=== PATIENT | female | born 1995 | race Caucasian/White ===

== ENCOUNTER 2017-09-22 17:26 | Emergency (ER) | payer BC ==
[2017-09-22] MEDS: SOD CHLORIDE 0.9% 1,000 ML IV (21:13)
[2017-09-22 21:25] LABS: ADD MAN DIFF? NO
[2017-09-22 21:27] LABS: BASOPHILS % 0.3 % (0.0-2.0); EOSINOPHILS % 0.5 % (0.0-7.0); HEMATOCRIT 38.7 % (37.0-47.0); HEMOGLOBIN 13.3 g/dl (12.0-16.0); LYMPHOCYTES % 22.7 % (18.0-55.0); MEAN CORPUSCULAR HEMOGLOBIN 30.9 pg (29.0-33.0); MEAN CORPUSCULAR HGB CONC 34.4 g/dl (32.0-37.0); MEAN PLATELET VOLUME 10.2 fl (7.4-10.4); MONOCYTE # 0.5 10^3/ul (0.3-0.9); NEUTROPHIL # 6.1 10^3/ul (1.6-7.5); NEUTROPHILS % 69.8 % (30.0-74.0); PLATELET COUNT 303 10^3/UL (140-415); RED CELL DISTRIBUTION WIDTH 13.1 % (11.5-14.5)
[2017-09-22 21:27] LABS: WHITE BLOOD COUNT 8.7 10^3/ul (4.8-10.8)
[2017-09-22 21:54] LABS: ALANINE AMINOTRANSFERASE 29 IU/L (13-69); ALBUMIN 3.9 g/dl (3.3-4.9); ALBUMIN/GLOBULIN RATIO 1.08; ALKALINE PHOSPHATASE 57 IU/L (42-121); ANION GAP 13 (8-16); ASPARTATE AMINO TRANSFERASE 23 IU/L (15-46); BLOOD UREA NITROGEN 13 mg/dl (7-20); CALCIUM 9.3 mg/dl (8.4-10.2); CARBON DIOXIDE 22 mmol/L (21-31); CHLORIDE 106 mmol/L (97-110); CREATININE 0.57 mg/dl (0.44-1.00); GLUCOSE 82 mg/dl (70-220); POTASSIUM 3.7 mmol/L (3.5-5.1); SODIUM 137 mmol/L (135-144); TOTAL PROTEIN 7.5 g/dl (6.1-8.1)
[2017-09-22 21:55] LABS: INR 0.93; PROTIME 12.6 Sec (11.9-14.9)
[2017-09-22 21:57] LABS: PARTIAL THROMBOPLASTIN TIME 27.4 Sec (25.0-35.0)
[2017-09-22 21:59] LABS: ADD UMIC YES; UR ASCORBIC ACID NEGATIVE (NEGATIVE); UR BACTERIA FEW /HPF (NONE SEEN); UR BILIRUBIN (Dip) NEGATIVE (NEGATIVE); UR BLOOD (Dip) NEGATIVE (NEGATIVE); UR CLARITY CLEAR (CLEAR); UR COLOR YELLOW (YELLOW); UR GLUCOSE (Dip) NEGATIVE (NEGATIVE); UR KETONES (Dip) NEGATIVE (NEGATIVE); UR LEUKOCYTE ESTERASE (Dip) TRACE Leu/ul (NEGATIVE); UR NITRITE (Dip) NEGATIVE (NEGATIVE); UR RBC 0 /HPF (0-5); UR SPECIFIC GRAVITY (Dip) 1.026 (1.003-1.030); UR SQUAMOUS EPITHELIAL CELL FEW /HPF (FEW); UR TOTAL PROTEIN (Dip) NEGATIVE (NEGATIVE); UR UROBILINOGEN (Dip) NEGATIVE (NEGATIVE); UR WBC 1 /HPF (0-5)
== END 2017-09-22 22:46 | disposition home or self-care (01) ==
LOC: FTE 17:26 → L-D 21:57 → FTE 21:57 → OBT 21:55 → L-D 21:57 → OBT 21:57 → FTE 17:26 → L-D 21:57 → FTE 21:57 → L-D 21:58 → FTE 21:58
DX: O26.892 Other specified pregnancy related conditions, second trimester (principal); R10.30 Lower abdominal pain, unspecified; R10.2 Pelvic and perineal pain; Z3A.18 18 weeks gestation of pregnancy
CPT/HCPCS: 36415; 76805; 80053; 81001; 84702; 85025; 85610; 85730; 86900; 86901; 87086; 99285-25

== ENCOUNTER 2017-09-22 22:17 | Outpatient (CLI) | payer BC ==
[2017-09-23] MEDS: TERBUTALINE 1 MG/ML INJ SC (00:32)
== END 2017-09-23 01:06 | disposition home or self-care (01) ==
LOC: OBT 22:17 → L-D 22:18
DX: O62.9 Abnormality of forces of labor, unspecified (principal); Z3A.18 18 weeks gestation of pregnancy
CPT/HCPCS: Z7500

== ENCOUNTER 2017-09-23 01:46 | Outpatient (CLI) | payer BC | END 2017-10-17 13:20 | disposition home or self-care (01) | LOC: OBT 01:46 → L-D 10-17 11:08 → OBT 10-17 13:20 | DX: O26.892 Other specified pregnancy related conditions, second trimester (principal); Z3A.22 22 weeks gestation of pregnancy; R55 Syncope and collapse | CPT/HCPCS: 76815; 76817 ==

== ENCOUNTER 2017-10-17 13:28 | Emergency (ER) | payer SELFPAY, BC | END 2017-10-17 15:22 | disposition left against medical advice (07) | LOC: E/R 13:28 | DX: Z53.21 Procedure and treatment not carried out due to patient leaving prior to being seen by health care provider (principal) ==

== ENCOUNTER 2017-11-21 23:43 | Inpatient (IN) | payer BC ==
[2017-11-22] MEDS: LACTATED RINGER'S 1,000 ML IV ×3 (00:54→20:02)
[2017-11-22 01:33] LABS: ADD MAN DIFF? NO
[2017-11-22 01:36] LABS: WHITE BLOOD COUNT 9.1 10^3/ul (4.8-10.8)
[2017-11-22 01:36] LABS: BASOPHILS % 0.2 % (0.0-2.0); EOSINOPHILS # 0.1 10^3/ul (0.0-0.5); EOSINOPHILS % 0.7 % (0.0-7.0); HEMATOCRIT 36.9 % (37.0-47.0); HEMOGLOBIN 12.6 g/dl (12.0-16.0); LYMPHOCYTES % 21.8 % (18.0-55.0); MEAN CORPUSCULAR HGB CONC 34.1 g/dl (32.0-37.0); MEAN CORPUSCULAR VOLUME 90.9 fl (72.0-104.0); MEAN PLATELET VOLUME 10.2 fl (7.4-10.4); MONOCYTE # 0.5 10^3/ul (0.3-0.9); MONOCYTES % 5.2 % (0.0-13.0); NEUTROPHIL # 6.3 10^3/ul (1.6-7.5); NEUTROPHILS % 69.7 % (30.0-74.0); PLATELET COUNT 286 10^3/UL (140-415); RED BLOOD COUNT 4.06 10^6/ul (4.20-5.40)
[2017-11-22 02:01] LABS: ALANINE AMINOTRANSFERASE 31 IU/L (13-69); ALBUMIN 3.5 g/dl (3.3-4.9); ALKALINE PHOSPHATASE 104 IU/L (42-121); ANION GAP 16 (8-16); ASPARTATE AMINO TRANSFERASE 22 IU/L (15-46); BLOOD UREA NITROGEN 9 mg/dl (7-20); CALCIUM 9.2 mg/dl (8.4-10.2); CARBON DIOXIDE 21 mmol/L (21-31); CHLORIDE 105 mmol/L (97-110); CREATININE 0.44 mg/dl (0.44-1.00); GLUCOSE 96 mg/dl (70-220); POTASSIUM 3.6 mmol/L (3.5-5.1); SODIUM 138 mmol/L (135-144)
[2017-11-22] MEDS: MAGNESIUM SULFATE 4 GM/100 ML 100 ML IV (02:08)
[2017-11-22] MEDS: BETAMET NA PHOS/AC(6 MG/ML) 5ML INJ IM (02:27)
[2017-11-22] MEDS: MAGNESIUM SULFATE 20 GM/500 ML 500 ML IV ×3 (02:36→23:34)
[2017-11-22 03:06] LABS: ADD UMIC YES; UR ASCORBIC ACID NEGATIVE (NEGATIVE); UR BACTERIA FEW /HPF (NONE SEEN); UR BILIRUBIN (Dip) NEGATIVE (NEGATIVE); UR BLOOD (Dip) NEGATIVE (NEGATIVE); UR CLARITY CLEAR (CLEAR); UR COLOR YELLOW (YELLOW); UR GLUCOSE (Dip) NEGATIVE (NEGATIVE); UR KETONES (Dip) TRACE mg/dL (NEGATIVE); UR LEUKOCYTE ESTERASE (Dip) TRACE Leu/ul (NEGATIVE); UR NITRITE (Dip) NEGATIVE (NEGATIVE); UR RBC 1 /HPF (0-5); UR SPECIFIC GRAVITY (Dip) 1.012 (1.003-1.030); UR TOTAL PROTEIN (Dip) NEGATIVE (NEGATIVE); UR UROBILINOGEN (Dip) NEGATIVE (NEGATIVE); UR WBC 1 /HPF (0-5)
[2017-11-22 07:09] LABS: MAGNESIUM 3.8 mg/dl (1.7-2.5)
[2017-11-22] MEDS: DOCUSATE SODIUM 100 MG CAP PO (09:00)
[2017-11-22] MEDS: AMPICILLIN 2 GM/NS (PMX) 100 ML IVPB ×3 (11:25→23:32)
[2017-11-22] MEDS: PRENATAL VITAMIN PO (11:26)
[2017-11-22] MEDS: ACETAMINOPHEN 325 MG TAB PO ×2 (11:44→20:02)
[2017-11-22 12:43] LABS: MAGNESIUM 4.6 mg/dl (1.7-2.5)
[2017-11-22 18:33] LABS: MAGNESIUM 4.5 mg/dl (1.7-2.5)
[2017-11-22] MEDS: LACTATED RINGER'S 500 ML IV ×6 (20:07→20:08)
[2017-11-22 20:37] LABS: RAPID PLASMA REAGIN NONREACTIVE (NR)
[2017-11-23] MEDS: LACTATED RINGER'S 500 ML IV ×2 (00:07→06:46)
[2017-11-23 01:43] LABS: MAGNESIUM 4.7 mg/dl (1.7-2.5)
[2017-11-23] MEDS: BETAMET NA PHOS/AC(6 MG/ML) 5ML INJ IM (01:58)
[2017-11-23] MEDS: LACTATED RINGER'S 1,000 ML IV (03:45)
[2017-11-23] MEDS: AMPICILLIN 2 GM/NS (PMX) 100 ML IVPB ×2 (06:22→11:29)
[2017-11-23 09:22] LABS: MAGNESIUM 4.8 mg/dl (1.7-2.5)
[2017-11-23] MEDS: PRENATAL VITAMIN PO (11:29)
== END 2017-11-23 16:58 | disposition home or self-care (01) | DRG 780 ==
LOC: OBT 23:43 → L-D 11-22 03:09 → OBT 11-22 03:12 → L-D 11-22 03:17
PROVIDERS: Obstetrics & Gynecology
DX: O47.03 False labor before 37 completed weeks of gestation, third trimester (principal); Z3A.28 28 weeks gestation of pregnancy
CPT/HCPCS: 76815; 76817; 76818; 80053; 81001; 82731; 83735; 85025; 86592; 86850; 86900; 86901; 87086; 96360; 96361

== ENCOUNTER 2018-01-29 11:48 | Outpatient (CLI) | payer BC ==
[2018-01-29 13:33] LABS: ALANINE AMINOTRANSFERASE 22 IU/L (13-69); ALBUMIN 3.4 g/dl (3.3-4.9); ALBUMIN/GLOBULIN RATIO 1.06; ALKALINE PHOSPHATASE 221 IU/L (42-121); ANION GAP 14 (8-16); ASPARTATE AMINO TRANSFERASE 23 IU/L (15-46); BILIRUBIN,INDIRECT 0.2 mg/dl (0-1.1); BILIRUBIN,TOTAL 0.2 mg/dl (0.2-1.3); BLOOD UREA NITROGEN 10 mg/dl (7-20); CALCIUM 8.7 mg/dl (8.4-10.2); CARBON DIOXIDE 19 mmol/L (21-31); CHLORIDE 109 mmol/L (97-110); GLUCOSE 105 mg/dl (70-220); SODIUM 138 mmol/L (135-144); TOTAL PROTEIN 6.6 g/dl (6.1-8.1); URIC ACID 5.2 mg/dl (3.1-7.9)
[2018-01-29 13:45] LABS: INR 0.93; PROTIME 12.5 Sec (11.9-14.9)
[2018-01-29 13:46] LABS: PARTIAL THROMBOPLASTIN TIME 27.1 Sec (25.0-35.0)
[2018-01-29 13:48] LABS: COLLECTION PERIOD 24 hrs; CREATININE CLEARANCE 210.8 mls/min (84.0-162.0); CREATININE,URINE RANDOM 72.26 mg/dl (20-320); VOLUME 2100 ml/24hrs
[2018-01-29 14:20] LABS: COLLECTION PERIOD 24 hrs; VOLUME 2100 mls
[2018-01-29 14:59] LABS: ADD MAN DIFF? NO
[2018-01-29 15:00] LABS: BASOPHILS % 0.2 % (0.0-2.0); EOSINOPHILS % 0.5 % (0.0-7.0); HEMATOCRIT 37.9 % (37.0-47.0); HEMOGLOBIN 12.7 g/dl (12.0-16.0); LYMPHOCYTES # 1.1 10^3/ul (0.8-2.9); MEAN CORPUSCULAR HEMOGLOBIN 30.2 pg (29.0-33.0); MEAN CORPUSCULAR HGB CONC 33.5 g/dl (32.0-37.0); MEAN CORPUSCULAR VOLUME 90.2 fl (82.0-101.0); MEAN PLATELET VOLUME 11.8 fl (7.4-10.4); MONOCYTE # 0.5 10^3/ul (0.3-0.9); MONOCYTES % 7.6 % (0.0-11.0); NEUTROPHIL # 4.3 10^3/ul (1.6-7.5); NEUTROPHILS % 71.7 % (39.0-77.0); PLATELET COUNT 217 10^3/UL (140-415); RED CELL DISTRIBUTION WIDTH 13.4 % (11.5-14.5)
[2018-01-29 15:00] LABS: WHITE BLOOD COUNT 5.9 10^3/ul (4.8-10.8)
== END 2018-01-29 16:15 | disposition home or self-care (01) ==
LOC: OBT 11:48 → L-D 11:49 → OBT 16:15
DX: O24.410 Gestational diabetes mellitus in pregnancy, diet controlled (principal); Z3A.38 38 weeks gestation of pregnancy
CPT/HCPCS: 36415; 76818; 80053; 82575; 84156; 84560; 85025; 85610; 85730

== ENCOUNTER 2018-02-05 10:43 | Inpatient (IN) | payer BC ==
[2018-02-05] MEDS ORDERED: IBUPROFEN 600 MG TAB PO (12:00)
[2018-02-05] MEDS ORDERED: MISOPROSTOL 200 MCG TAB PR (12:00)
[2018-02-05] MEDS ORDERED: BUTORPHANOL 2 MG INJ IV (12:00)
[2018-02-05] MEDS ORDERED: METHYLERGONOVINE 0.2 MG INJ IM (12:00)
[2018-02-05] MEDS ORDERED: CARBOPROST 250 MCG INJ IM (12:00)
[2018-02-05] MEDS ORDERED: LIDOCAINE 1% (MPF) 30 ML INJ INJ (12:00)
[2018-02-05] MEDS ORDERED: OXYTOCIN 30 UNITS/LR 500 ML IV ×3 (12:00)
[2018-02-05 12:43] LABS: ADD MAN DIFF? NO
[2018-02-05 12:47] LABS: BASOPHILS % 0.3 % (0.0-2.0); EOSINOPHILS % 0.5 % (0.0-7.0); HEMATOCRIT 37.4 % (37.0-47.0); HEMOGLOBIN 12.4 g/dl (12.0-16.0); LYMPHOCYTES # 1.4 10^3/ul (0.8-2.9); LYMPHOCYTES % 17.8 % (15.0-51.0); MEAN CORPUSCULAR HGB CONC 33.2 g/dl (32.0-37.0); MEAN CORPUSCULAR VOLUME 90.3 fl (82.0-101.0); MEAN PLATELET VOLUME 11.6 fl (7.4-10.4); MONOCYTE # 0.5 10^3/ul (0.3-0.9); MONOCYTES % 6.8 % (0.0-11.0); NEUTROPHIL # 5.7 10^3/ul (1.6-7.5); NEUTROPHILS % 72.7 % (39.0-77.0); PLATELET COUNT 201 10^3/UL (140-415); RED BLOOD COUNT 4.14 10^6/ul (4.20-5.40); RED CELL DISTRIBUTION WIDTH 13.8 % (11.5-14.5)
[2018-02-05 12:47] LABS: WHITE BLOOD COUNT 7.8 10^3/ul (4.8-10.8)
[2018-02-05 13:06] LABS: INR 0.92; PROTIME 12.4 Sec (11.9-14.9)
[2018-02-05 13:07] LABS: PARTIAL THROMBOPLASTIN TIME 26.7 Sec (25.0-35.0)
[2018-02-05] MEDS: DINOPROSTONE 10 MG VAG SUPP VAG (13:38)
[2018-02-05] MEDS: LACTATED RINGER'S 1,000 ML IV ×3 (13:38→21:05)
[2018-02-05 13:43] LABS: HEPATITIS B SURFACE ANTIGEN NEGATIVE (NEGATIVE)
[2018-02-05 13:49] LABS: ALANINE AMINOTRANSFERASE 17 IU/L (13-69); ALBUMIN 2.9 g/dl (3.3-4.9); ALBUMIN/GLOBULIN RATIO 1.07; ALKALINE PHOSPHATASE 211 IU/L (42-121); ANION GAP 10 (8-16); ASPARTATE AMINO TRANSFERASE 18 IU/L (15-46); BILIRUBIN,INDIRECT 0.1 mg/dl (0-1.1); BILIRUBIN,TOTAL 0.1 mg/dl (0.2-1.3); BLOOD UREA NITROGEN 12 mg/dl (7-20); CALCIUM 9.3 mg/dl (8.4-10.2); CARBON DIOXIDE 21 mmol/L (21-31); CHLORIDE 110 mmol/L (97-110); CREATININE 0.56 mg/dl (0.44-1.00); GLUCOSE 97 mg/dl (70-220); POTASSIUM 4.4 mmol/L (3.5-5.1); SODIUM 137 mmol/L (135-144); TOTAL PROTEIN 5.6 g/dl (6.1-8.1); URIC ACID 5.5 mg/dl (3.1-7.9)
[2018-02-05 14:33] LABS: ADD UMIC YES; UR ASCORBIC ACID 20 mg/dL (NEGATIVE); UR BACTERIA FEW /HPF (NONE SEEN); UR BILIRUBIN (Dip) NEGATIVE (NEGATIVE); UR BLOOD (Dip) NEGATIVE (NEGATIVE); UR CLARITY SLIGHTLY CLOUDY (CLEAR); UR COLOR YELLOW (YELLOW); UR GLUCOSE (Dip) NEGATIVE (NEGATIVE); UR KETONES (Dip) NEGATIVE (NEGATIVE); UR LEUKOCYTE ESTERASE (Dip) 2+ Leu/ul (NEGATIVE); UR MUCUS FEW /HPF (NONE SEEN); UR NITRITE (Dip) NEGATIVE (NEGATIVE); UR RBC 3 /HPF (0-5); UR TOTAL PROTEIN (Dip) NEGATIVE (NEGATIVE); UR UROBILINOGEN (Dip) NEGATIVE (NEGATIVE); UR WBC 8 /HPF (0-5)
[2018-02-05] MEDS: AMPICILLIN 1 GM/NS (PMX) 50 ML IV ×2 (16:00→21:00)
[2018-02-05] MEDS: AMPICILLIN 2 GM/NS (PMX) 100 ML IV (17:29)
[2018-02-05 22:37] LABS: RAPID PLASMA REAGIN NONREACTIVE (NR)
[2018-02-06] MEDS ORDERED: FENTAnyl 2MCG/ML-ROPIV 0.2% 100 ML (00:56)
[2018-02-06] MEDS: LACTATED RINGER'S 1,000 ML IV (01:09)
[2018-02-06] MEDS ORDERED: FENTAnyl 2MCG/ML-ROPIV 0.2% 100 ML BAG EPI (01:30)
[2018-02-06] MEDS ORDERED: DIPHENHYDRAMINE 50 MG INJ IV ×2 (01:30→04:00)
[2018-02-06] MEDS ORDERED: ONDANSETRON 4 MG INJ IV ×2 (01:30→04:00)
[2018-02-06] MEDS ORDERED: NALOXONE (0.4 MG/ML) INJ IV (01:30)
[2018-02-06] MEDS: AMPICILLIN 1 GM/NS (PMX) 50 ML IV (02:26)
[2018-02-06] MEDS ORDERED: TERBUTALINE 1 ML (02:32)
[2018-02-06] MEDS: TERBUTALINE 1 MG/ML INJ SC (02:38)
[2018-02-06] MEDS: ACETAMINOPHEN 500 MG TAB PO (02:39)
[2018-02-06 03:59] LABS: CBV Base Excess -2.9 mmol/L; CBV COHb 1.1 %; CBV Oxygen Sat 80.1 mmHG; CBV Total Hemglobin 19.6 g/dl; Cord Blood Venous pO2 35.8 mmHG (15.0-45.0); Fraction OxyHgb Cord Venous 78.3 %; MODE ROOM AIR; MetHgb Cord Venous 1.2 %; Sample Type Blood venous; Site CORD
[2018-02-06 04:00] LABS: AADO2 Cord Arterial 66.8 mmHg; Arterial Cord Blood pCO2 47.7 mmHG (25-50); CBA Base Excess -3.3 mmol/L; CBA COHb 1.6 %; CBA Oxygen Sat 59.9 mmHG; CBA Total Hemglobin 19.6 g/dl; Cord Blood Arterial pO2 25.8 mmHG (15.0-45.0); Fraction OxyHgb Cord Arterial 58.1 %; MODE ROOM AIR; MetHgb Cord Arterial 1.4 %; Site CORD
[2018-02-06] MEDS ORDERED: METHYLERGONOVINE 0.2 MG INJ IM (04:00)
[2018-02-06] MEDS ORDERED: MAGNESIUM HYDROXIDE 30ML CUP PO (04:00)
[2018-02-06] MEDS ORDERED: SENNA/DOCUSATE NA (8.6MG/50MG) TAB PO (04:00)
[2018-02-06] MEDS ORDERED: MISOPROSTOL 200 MCG TAB PR (04:00)
[2018-02-06] MEDS ORDERED: ONDANSETRON 4 MG TAB PO (04:00)
[2018-02-06] MEDS ORDERED: ACETAMINOPHEN 325 MG TAB PO ×2 (04:00)
[2018-02-06] MEDS ORDERED: DIPHENHYDRAMINE 25 MG CAP PO (04:00)
[2018-02-06] MEDS ORDERED: CARBOPROST 250 MCG INJ IM (04:00)
[2018-02-06] MEDS ORDERED: BENZOCAINE 20% 56 ML SPRAY TOP (04:00)
[2018-02-06] MEDS ORDERED: HYDROCODONE/APAP (5/325) TAB PO (04:00)
[2018-02-06] MEDS: OXYTOCIN 30 UNITS/LR 500 ML IVPB (04:46)
[2018-02-06] MEDS: OXYTOCIN 30 UNITS/LR 500 ML IV (05:01)
[2018-02-06] MEDS: IBUPROFEN 800 MG TAB PO ×3 (06:00→18:16)
[2018-02-06] MEDS ORDERED: ACCU-CHEK XX (06:00)
[2018-02-06] MEDS: LACTATED RINGER'S 1,000 ML IV* ×3 (06:52→19:51)
[2018-02-06] MEDS: ACCU-CHEK XX ×4 (07:30→20:05)
[2018-02-06] MEDS: HYDROCODONE/APAP (5/325) TAB PO ×3 (08:30→20:50)
[2018-02-06 16:24] LABS: ADD MAN DIFF? NO
[2018-02-06 16:31] LABS: BASOPHILS % 0.2 % (0.0-2.0); EOSINOPHILS % 0.3 % (0.0-7.0); HEMATOCRIT 32.9 % (37.0-47.0); HEMOGLOBIN 10.9 g/dl (12.0-16.0); LYMPHOCYTES # 1.7 10^3/ul (0.8-2.9); LYMPHOCYTES % 14.2 % (15.0-51.0); MEAN CORPUSCULAR HEMOGLOBIN 30.3 pg (29.0-33.0); MEAN CORPUSCULAR HGB CONC 33.1 g/dl (32.0-37.0); MEAN CORPUSCULAR VOLUME 91.4 fl (82.0-101.0); MEAN PLATELET VOLUME 11.4 fl (7.4-10.4); MONOCYTE # 0.8 10^3/ul (0.3-0.9); MONOCYTES % 6.6 % (0.0-11.0); NEUTROPHILS % 77.6 % (39.0-77.0); PLATELET COUNT 177 10^3/UL (140-415); RED CELL DISTRIBUTION WIDTH 13.9 % (11.5-14.5)
[2018-02-06 16:31] LABS: WHITE BLOOD COUNT 11.6 10^3/ul (4.8-10.8)
[2018-02-06 16:53] LABS: ALANINE AMINOTRANSFERASE 25 IU/L (13-69); ALBUMIN 2.4 g/dl (3.3-4.9); ALBUMIN/GLOBULIN RATIO 0.88; ALKALINE PHOSPHATASE 153 IU/L (42-121); ANION GAP 10 (8-16); ASPARTATE AMINO TRANSFERASE 27 IU/L (15-46); BILIRUBIN,INDIRECT 0.1 mg/dl (0-1.1); BILIRUBIN,TOTAL 0.1 mg/dl (0.2-1.3); BLOOD UREA NITROGEN 10 mg/dl (7-20); CALCIUM 8.6 mg/dl (8.4-10.2); CARBON DIOXIDE 24 mmol/L (21-31); CHLORIDE 109 mmol/L (97-110); CREATININE 0.73 mg/dl (0.44-1.00); GLUCOSE 106 mg/dl (70-220); POTASSIUM 3.7 mmol/L (3.5-5.1); SODIUM 139 mmol/L (135-144); TOTAL PROTEIN 5.1 g/dl (6.1-8.1); URIC ACID 5.7 mg/dl (3.1-7.9)
[2018-02-06 17:20] LABS: PT RATIO 1.1
[2018-02-06 17:21] LABS: PARTIAL THROMBOPLASTIN TIME 28.3 Sec (25.0-35.0)
[2018-02-06 17:41] LABS: INR 1.02; PROTIME 13.5 Sec (11.9-14.9)
[2018-02-06] MEDS: DIBUCAINE 1% 30 GM OINT PR (22:43)
[2018-02-06] MEDS: LANOLIN 7 GM TUBE TOP (22:43)
[2018-02-07] MEDS: IBUPROFEN 800 MG TAB PO ×5 (00:14→23:23)
[2018-02-07] MEDS: LACTATED RINGER'S 1,000 ML IV* ×3 (03:51→19:51)
[2018-02-07] MEDS: ACCU-CHEK XX (08:16)
[2018-02-07 08:59] LABS: ADD MAN DIFF? NO
[2018-02-07 09:11] LABS: BASOPHILS % 0.4 % (0.0-2.0); EOSINOPHILS # 0.1 10^3/ul (0.0-0.5); EOSINOPHILS % 0.9 % (0.0-7.0); HEMATOCRIT 32.1 % (37.0-47.0); HEMOGLOBIN 10.3 g/dl (12.0-16.0); LYMPHOCYTES # 1.6 10^3/ul (0.8-2.9); LYMPHOCYTES % 15.5 % (15.0-51.0); MEAN CORPUSCULAR HEMOGLOBIN 29.9 pg (29.0-33.0); MEAN CORPUSCULAR HGB CONC 32.1 g/dl (32.0-37.0); MEAN PLATELET VOLUME 11.8 fl (7.4-10.4); MONOCYTE # 0.7 10^3/ul (0.3-0.9); NEUTROPHIL # 7.6 10^3/ul (1.6-7.5); NEUTROPHILS % 74.3 % (39.0-77.0); PLATELET COUNT 176 10^3/UL (140-415); RED BLOOD COUNT 3.45 10^6/ul (4.20-5.40); RED CELL DISTRIBUTION WIDTH 14.4 % (11.5-14.5)
[2018-02-07 09:11] LABS: WHITE BLOOD COUNT 10.3 10^3/ul (4.8-10.8)
[2018-02-07] MEDS: HYDROCODONE/APAP (5/325) TAB PO (09:40)
[2018-02-07 09:46] LABS: ADD UMIC YES; UR ASCORBIC ACID 40 mg/dL (NEGATIVE); UR BACTERIA FEW /HPF (NONE SEEN); UR BILIRUBIN (Dip) NEGATIVE (NEGATIVE); UR BLOOD (Dip) 2+ mg/dL (NEGATIVE); UR CLARITY CLEAR (CLEAR); UR COLOR YELLOW (YELLOW); UR GLUCOSE (Dip) NEGATIVE (NEGATIVE); UR KETONES (Dip) NEGATIVE (NEGATIVE); UR LEUKOCYTE ESTERASE (Dip) TRACE Leu/ul (NEGATIVE); UR NITRITE (Dip) NEGATIVE (NEGATIVE); UR RBC 105 /HPF (0-5); UR SPECIFIC GRAVITY (Dip) 1.021 (1.003-1.030); UR TOTAL PROTEIN (Dip) NEGATIVE (NEGATIVE); UR UROBILINOGEN (Dip) NEGATIVE (NEGATIVE); UR WBC 10 /HPF (0-5)
[2018-02-08] MEDS: LACTATED RINGER'S 1,000 ML IV* (03:51)
[2018-02-08] MEDS: IBUPROFEN 800 MG TAB PO ×3 (05:50→17:36)
[2018-02-08] MEDS: DIPHTH/TET/ACEL PERTUSS (ADULT) 0.5 ML VIAL IM* (09:00)
[2018-02-08] MEDS: MEASLES,MUMPS,RUBELLA VACCINE INJ SC* (09:00)
[2018-02-08] MEDS: HYDROCODONE/APAP (5/325) TAB PO (13:39)
[2018-02-08] MEDS: VARICELLA VACCINE LIVE/PF 1,350 UNIT/0.5 ML ML SC* (19:17)
== END 2018-02-08 19:30 | disposition home or self-care (01) | DRG 774 ==
LOC: L-D 10:43 → PP1 02-06 06:00 → L-D 11:14
PROVIDERS: Obstetrics & Gynecology
PROC: 10D07Z6 Extraction of Products of Conception, Vacuum, Via Natural or Artificial Opening (ICD-10-PCS; principal; 2018-02-06)
PROC: 3E033VJ Introduction of Other Hormone into Peripheral Vein, Percutaneous Approach (ICD-10-PCS; 2018-02-06)
PROC: 3E0P7VZ Introduction of Hormone into Female Reproductive, Via Natural or Artificial Opening (ICD-10-PCS; 2018-02-06)
DX: O14.03 Mild to moderate pre-eclampsia, third trimester (principal); O24.420 Gestational diabetes mellitus in childbirth, diet controlled; O76 Abnormality in fetal heart rate and rhythm complicating labor and delivery; Z3A.38 38 weeks gestation of pregnancy; Z37.0 Single live birth; O99.820 Streptococcus B carrier state complicating pregnancy
CPT/HCPCS: 36415; 36600; 62319; 76815; 80053; 81001; 82803; 82962; 84560; 85025; 85384; 85610; 85730; 86592; 86850; 86900; 86901; 87070; 87340; 88307; 90716; 99464